=== PATIENT | male | born 1965 | race Caucasian/White ===

== ENCOUNTER → 2018-10-16 | Outpatient (CLI) | payer OTHER ==
[~2018-10-16] MED LIST: BARIUM SULFATE 176 GM BTL PO ONE; BARIUM SULFATE 340 GM POWD ONE; DICY10CA11 PO; INDO75CA PO; PANT40TA65 PO; POLY17PO25 PO; ROSU10TA FT; SUCR1TAB85 PO; TADA5TAB7 PO; TEST30SO3; TOPI200T82 PO; VALS160T22 PO; VERA180C8 PO
--- NOTE | 2018-10-16 17:29 | RADIOLOGY IMAGING REPORT ---
FACILITY: [facility] PATIENT NAME: Reggie Cabrera : 1965 MR: [id number] V: [id number] EXAM DATE: ORDERING PHYSICIAN: DANNY CASTILLO TECHNOLOGIST: Location: [facility] [place] Patient: Reggie Cabrera : 1965 Visit/Account:[id number] Date of Sevice: 10/16/2018 Exam type: XR UPPER GI SERIES W/O KUB History: GERD chest pain when lying on side Comparison: None. Findings: Double contrast upper GI series was performed with thick and thin barium and air contrast. There is a small hiatal hernia with a large amount of gastroesophageal reflux. There is no evidence of esopha geal narrowing or mucosal erosion. No abnormality of the stomach duodenal bulb or duodenal C-loop wa s seen. The fluoroscopy dose area product was 1007.15 micro-Woods per meter squared IMPRESSION: 1. Small hiatal hernia with a large amount of gastroesophageal reflux although no evidence of esopha geal narrowing or mucosal erosion Report Dictated By: Rylie Swain MD at 10/16/2018 5:22 PM Report E-Signed By: Rylie Swain MD at 10/16/2018 5:25 PM WSN:[email or web address]
== END ==
LOC: RAD 01:33
PROVIDERS: ATTEND Family Medicine
DX: K44.9 Diaphragmatic hernia without obstruction or gangrene (principal); K21.9 Gastro-esophageal reflux disease without esophagitis
CPT/HCPCS: 74240

== ENCOUNTER 2018-11-16 00:21 | Day surgery (SDC) | payer OTHER ==
[~2018-11-16] VITALS: Ht 180.3 cm; Wt 88.0 kg
[~2018-11-16 00:21] MED LIST changes: -BARIUM SULFATE 176 GM BTL PO ONE; -BARIUM SULFATE 340 GM POWD ONE; -ROSU10TA FT; +ROSU10TA PO
[2018-11-16 06:14] VITALS: BP 115/83
[2018-11-16] MEDS ORDERED: LIDOCAINE/SOD BICARB 8.4% SYR ID ONE (06:30)
[2018-11-16] MEDS ORDERED: NORMOSOL R SOLN(*) 1000 ML BAG 1,000 ML IV PRN (06:30)
[2018-11-16] MEDS ORDERED: PROPOFOL EMUL(*) 10MG/ML 20 ML 60 ML ONE ×2 (07:27)
[2018-11-16] MEDS ORDERED: KETAMINE HCL 500 MG/10 ML VIAL ONE ×2 (07:27)
[2018-11-16 08:01] VITALS: BP 77/51
--- NOTE | 2018-11-16 08:09 | Short(Outpt) Discharge Summary ---
Discharge Summary Reason for Hosp/Final Diag: (1) GERD (gastroesophageal reflux disease) Hospital Course & Plan: pt presented for egd and colonoscopy. he tolerated the procedure well. path pending. he will be discharged home when criteria met. Departure Discharge to: Home Discharge Instructions Home Meds Reported Medications Indomethacin (INDOMETHACIN) 75 Mg Capsule.er, 75 MG PO 09/10/18 Testosterone (Testosterone) 30 Mg/1.5 Ml Per Actuation Rukhsana..oil field rig builder 09/10/18 Polyethylene Glycol 3350 (MIRALAX) 17 Gm Powd.pack, 17 GM PO, PKT 09/10/18 Tadalafil (CIALIS) 5 Mg Tablet, 5 MG PO QDAY 09/10/18 Topiramate (TOPAMAX) 200 Mg Tablet, 200 MG PO QDAY 09/10/18 Valsartan (DIOVAN) 160 Mg Tablet, 160 MG PO QDAY 09/10/18 Dicyclomine Hcl (DICYCLOMINE HCL) 10 Mg Capsule, 10 MG PO BID, CAPSULE 09/10/18 Sucralfate (CARAFATE) 1 Gm Tablet, 1 GM PO BID 09/10/18 Verapamil Hcl (VERAPAMIL ER) 180 Mg Cap24h.pel, 180 MG PO BID 09/10/18 Pantoprazole Sodium (PANTOPRAZOLE SODIUM) 40 Mg Tablet.dr, 40 MG PO QDAY, TAB.SR 09/10/18 Rosuvastatin Calcium (CRESTOR) 10 Mg Tab, 10 MG PO QODAY, TAB 09/10/18 Diet: Regular Activity: As Tolerated Special Instructions: we will call you in 10 days with biopsy results. CHIP GHOSH Nov 16, 2018 08:09
[2018-11-16 08:15] VITALS: BP 107/66
[2018-11-16 08:30] VITALS: BP 115/80
[2018-11-16 08:55] VITALS: BP 104/75
[2018-11-16 08:57] VITALS: BP 95/68
--- NOTE | 2018-11-16 09:13 | OPERATIVE REPORT 1 ---
EVENT DATE: November 16, 2018 SURGEON: Montana Jarrett MD ANESTHESIOLOGIST: Reggie Melchor MD ANESTHESIA: MAC PREOPERATIVE DIAGNOSIS GERD and need for screening colonoscopy. POSTOPERATIVE DIAGNOSIS GERD and need for screening colonoscopy. PROCEDURE PERFORMED EGD which was documented in endoPro and colonoscopy which is being dictated due to an issue with endoPro. FLUIDS IV crystalloid ESTIMATED BLOOD LOSS None. SPECIMENS None. COMPLICATIONS None. INDICATIONS This is a 53-year-old male with GERD who underwent an EGD which is documented in endoPro and a screening colonoscopy which is being dictated here. DESCRIPTION OF PROCEDURE The patient was in the left lateral position under MAC anesthesia. The perianal and digital rectal exam was performed. It was unremarkable. Colonoscope was advanced through the anus to the cecum under direct vision. The cecum was identified by the appendiceal orifice and the ileocecal valve and the area behind the ileocecal valve was inspected as well. The scope was slowly withdrawn evaluating the mucosa along the entire length of the colon and rectum. The prep was sufficient to identify polyps greater than 6 mm. The patient had multiple diverticula in the sigmoid colon. These were small diverticula with a few medium sized. There was minimal diverticulosis in the ascending colon. There were no polyps, no masses, no colitis. The patient did have moderate internal hemorrhoids CO2 was suctioned from the rectum prior to withdrawing the scope. The patient tolerated the procedure well. There were no complications. MTDD
--- NOTE | 2018-11-16 09:19 | NUR ---
0801- PT. RECEIVED FROM OR VIA STRETCHER WITH THE SIDERAILS UP. SBAR RECEIVED FROM DUSTIN OCAMPO AND DR. OLMSTEAD. PT. RESTING QUIETLY. SEE ADMISSION ASSESSMENT. 0805- PT. WAKING UP AND IS VERY EMOTIONAL AND CONFUSED. PT. HYPOTENSIVE SO DR. OLMSTEAD GAVE EPHEDRINE. 0810- PT. GOING THROUGH THE PRESIDENTS AND COUNTING ON HIS FINGERS AND STATING RELATIVES TO HELP CENTER HIMSELF. 0818- PT. RETURNED TO ROOM AIR AND PROVIDED WITH COFFEE. 0830- PT. GIRLFRIEND BROUGHT BACK INTO THE ROOM. 0840- DR. GHOSH AT BEDSIDE. 0855- PT. STATES THAT HE IS READY TO GO HOME SO ORTHOSTATICS PREFORMED. 0900- PT. GETTING DRESSED. 0903- PT. TO THE BATHROOM. 0905- DISCHARGE GONE OVER WITH PT AND GIRLFRIEND. 0908- IV TAKEN OUT AND PRESSURE DRESSING APPLIED. 0910- PT. ACCOMPANIED OUT TO THE [facility] WITH JOVANNI OCAMPO AND GIRLFRIEND. SEE DISCHARGE ASSESSMENT.
== END 2018-11-16 09:10 | disposition home or self-care (01) ==
LOC: OR 00:21
PROVIDERS: ATTEND Surgery
DX: K21.9 Gastro-esophageal reflux disease without esophagitis (principal); K20.9 Esophagitis, unspecified; K44.9 Diaphragmatic hernia without obstruction or gangrene; K29.70 Gastritis, unspecified, without bleeding
CPT/HCPCS: 43239; 87077; 88305; 88342; J2704

== ENCOUNTER → 2019-03-20 | Outpatient (CLI) | payer OTHER ==
--- NOTE | 2019-03-20 10:08 | RADIOLOGY IMAGING REPORT ---
FACILITY: [facility] PATIENT NAME: Reggie Cabrera : 1965 MR: [id number] V: [id number] EXAM DATE: ORDERING PHYSICIAN: DANNY CASTILLO TECHNOLOGIST: Location: [facility] [place] Patient: Reggie Cabrera : 1965 Visit/Account:[id number] Date of Sevice: 03/20/2019 EXAMINATION: Limited right upper quadrant ultrasound 03/20/2019 8:50 AM HISTORY: Right upper quadrant abdominal pain. COMPARISON STUDIES: none. FINDINGS: Gallbladder: no stones or sludge. Liver: Negative Common duct: 5 mm Pancreas: Partially obscured by bowel gas. Visualized portions are unremarkable. Right kidney: negative Upper abdominal aorta and IVC: negative Ascites: none IMPRESSION: 1. Pancreatic tail was not completely seen due to bowel gas. Visualized portions of the pancreas ar e unremarkable. 2. Otherwise unremarkable study. No acute etiology for right upper quadrant pain demonstrated. Report Dictated By: Tai Dominique MD at 03/20/2019 9:57 AM Report E-Signed By: Tai Dominique MD at 03/20/2019 9:59 AM WSN:[email or web address]
== END ==
LOC: US 00:41
PROVIDERS: ATTEND Family Medicine
DX: R10.11 Right upper quadrant pain (principal); R14.0 Abdominal distension (gaseous)
CPT/HCPCS: 76705

== ENCOUNTER → 2019-03-21 | Outpatient (CLI) | payer OTHER ==
[~2019-03-21] MED LIST changes: +SINCALIDE 5 MCG VIAL INJ ONE; +WATER FOR INJ,STERILE 20 ML 20 ML ONE
--- NOTE | 2019-03-21 15:59 | RADIOLOGY IMAGING REPORT ---
FACILITY: [facility] [place] PATIENT NAME: Reggie Cabrera : 1965 MR: [id number] V: [id number] EXAM DATE: ORDERING PHYSICIAN: DANNY CASTILLO TECHNOLOGIST: Location: [facility] [place] Patient: Reggie Cabrera : 1965 Visit/Account:[id number] Date of Sevice: 03/21/2019 EXAMINATION: Nuclear Medicine HIDA Scan with Kinevac Stimulation 03/21/2019 12:30 PM HISTORY: Right upper quadrant pain/bloating TECHNIQUE: 6.0 mCi Tc99m Mebrofenin was injected intravenously. Multiple sequential gamma camera zain ges of the abdomen were obtained for 60 minutes. At that time, Kinevac was injected intravenously and an additional 30 minutes of gamma camera imaging data was acquired. A computer-generated region of i nterest was placed around the gallbladder and time-activity curve for the gallbladder was derived. Th e gallbladder ejection fraction was calculated. COMPARISON STUDIES: Ultrasound 03/20/2019 FINDINGS: Liver uptake and excretion: normal Time to appearance: Bile ducts: 5 minutes. Gallbladder: 10 minutes. Duodenum: 8 minutes. Duodenal- gastric reflux / extravasation: none Post IV Kinevac: excretion Patient symptoms: Nausea and some cramping Ejection fraction = 81 %, (normal range > 35%). IMPRESSION: The patient had some nausea and cramping during gallbladder emptying in what is an otherwise normal s tudy with a normal GB EF. Report Dictated By: Tai Dominique MD at 03/21/2019 3:47 PM Report E-Signed By: Tai Dominique MD at 03/21/2019 3:49 PM WSN:[email or web address]
== END ==
LOC: NUC 03:51
PROVIDERS: ATTEND Family Medicine
DX: R10.11 Right upper quadrant pain (principal)
CPT/HCPCS: 78226; A9537; J2805